=== PATIENT | male | born 1950 | race African-American/Black ===

== ENCOUNTER → 2018-03-07 11:36 | Outpatient (CLI) | payer BC, SELFPAY ==
[2018-03-07 13:08] LABS: Prostate Specific Ag, Diagnost 4.86 ng/mL (0.0-4.0)
== END ==
PROVIDERS: Visit Provider Urology
DX: R97.20 Elevated prostate specific antigen [PSA] (principal)
CPT/HCPCS: 36415; 84153

== ENCOUNTER → 2018-11-09 08:42 | Outpatient (CLI) | payer BC, SELFPAY ==
[2018-11-09 11:39] LABS: Prostate Specific Ag, Diagnost 7.37 ng/mL (0.0-4.0)
== END ==
PROVIDERS: Visit Provider Urology
DX: R97.20 Elevated prostate specific antigen [PSA] (principal)
CPT/HCPCS: 36415; 84153

== ENCOUNTER → 2019-05-24 08:20 | Outpatient (CLI) | payer BC, SELFPAY ==
[2019-05-24 11:41] LABS: Prostate Specific Ag, Diagnost 7.76 ng/mL (0.0-4.0)
== END ==
PROVIDERS: Visit Provider Urology
DX: R97.20 Elevated prostate specific antigen [PSA] (principal)
CPT/HCPCS: 36415; 84153